=== PATIENT | male | born 1975 | race African-American/Black ===

== ENCOUNTER 2016-08-27 12:30 | Emergency (ER) | payer MEDICARE, MEDICAID ==
[2016-08-27] MEDS ORDERED: DIPH/PERTUSS(ACELL)/TETANUS VAC/PF 0.5 ML SYR (>=10YO) IM ONE (13:17)
--- NOTE | 2016-08-27 13:17 | ER Document Report ---
ED Medical Screen (RME) - General Stated Complaint: FACE INJURY Time seen by provider: 13:12 Mode of Arrival: Ambulatory Information source: Patient, Parent - mom Notes: 40-year-old male hit the top of his head on the chair in front of him due to the rocking that he does because of his MR behavior. Small puncture medial left eye canthus. Tetanus is not current. TRAVEL OUTSIDE OF THE [place] IN LAST 30 DAYS: No - Related Data Allergies/Adverse Reactions: No Known Allergies Allergy (Verified 06/21/16 09:36) Past Medical History - Past Medical History Cardiac Medical History: Denies: Hx Coronary Artery Disease, Hx Heart Attack, Hx Hypertension Pulmonary Medical History: Denies: Hx Asthma, Hx Bronchitis, Hx COPD, Hx Pneumonia Neurological Medical History: Reports: Hx Seizures - last sz was at 9 years old- no current meds. Denies: Hx Cerebrovascular Accident Musculoskeltal Medical History: Denies Hx Arthritis - Immunizations Hx Diphtheria, Pertussis, Tetanus Vaccination: Yes
--- NOTE | 2016-08-27 15:11 | ER Document Report ---
ED Wound - General Chief Complaint: Laceration Stated Complaint: FACE INJURY Mode of Arrival: Ambulatory Notes: The patient is a 40-year-old male, past medical history MR, presents with a small left facial laceration after he hit his head on the side of the yazidi pew. Tetanus is not up-to-date. Denies LOC, blurry vision or difficulty seeing. TRAVEL OUTSIDE OF THE [place] IN LAST 30 DAYS: No - Related Data Allergies/Adverse Reactions: No Known Allergies Allergy (Verified 08/27/16 13:12) Past Medical History - General Information source: Patient, Parent - mom - Social History Smoking Status: Unknown if Ever Smoked Chew tobacco use (# tins/day): No Frequency of alcohol use: None Drug Abuse: None Family History: Reviewed & Not Pertinent Patient has suicidal ideation: No Patient has homicidal ideation: No - Past Medical History Cardiac Medical History: Denies: Hx Coronary Artery Disease, Hx Heart Attack, Hx Hypertension Pulmonary Medical History: Denies: Hx Asthma, Hx Bronchitis, Hx COPD, Hx Pneumonia Neurological Medical History: Reports: Hx Seizures - last sz was at 9 years old- no current meds. Denies: Hx Cerebrovascular Accident Renal/ Medical History: Denies: Hx Peritoneal Dialysis Musculoskeltal Medical History: Denies Hx Arthritis - Immunizations Hx Diphtheria, Pertussis, Tetanus Vaccination: Yes Review of Systems - Review of Systems Notes: REVIEW OF SYSTEMS: CONSTITUTIONAL: -fevers, -chills EENT: -eye pain, -difficulty swallowing, -nasal congestion CARDIOVASCULAR:-chest pain, -syncope. RESPIRATORY: -cough, -SOB GASTROINTESTINAL: -abdominal pain, - nausea, -vomiting, -diarrhea GENITOURINARY: -dysuria, -hematuria MUSCULOSKELETAL: -back pain, -neck pain SKIN: -rash or skin lesions, +small facial lac HEMATOLOGIC: -easy bruising or bleeding. LYMPHATIC: -swollen, enlarged glands. NEUROLOGICAL: -altered mental status or loss of consciousness, -headache, - neurologic symptoms PSYCHIATRIC: -anxiety, -depression. ALL OTHER SYSTEMS REVIEWED AND NEGATIVE. Physical Exam - Vital signs Vitals: Temp Pulse Resp BP Pulse Ox 97.7 F 100 19 114/87 H 100 08/27/16 12:59 08/27/16 12:59 08/27/16 12:59 08/27/16 12:59 08/27/16 12:59 - Notes Notes: PHYSICAL EXAMINATION: GENERAL: Well-appearing, well-nourished and in no acute distress. EYES: Pupils equal round and reactive to light, extraocular movements intact, sclera anicteric, conjunctiva are normal. ENT: nares patent, oropharynx clear without exudates. Moist mucous membranes. NECK: Normal range of motion, supple without lymphadenopathy LUNGS: Breath sounds clear to auscultation bilaterally and equal. No wheezes rales or rhonchi. HEART: Regular rate and rhythm without murmurs ABDOMEN: Soft, nontender, normoactive bowel sounds. No guarding, no rebound. No masses appreciated. EXTREMITIES: Normal range of motion, no pitting or edema. No cyanosis. NEUROLOGICAL: Cranial nerves grossly intact. Normal speech, normal gait. Normal sensory, motor, and reflex exams. PSYCH: Normal mood, normal affect. SKIN: 0.5 cm superficial laceration over left latter day. Warm, Dry, normal turgor, no rashes or lesions noted. Course - Re-evaluation Re-evalutation: No eyeball involvement and EOMI. Attempted to Dermabond small laceration, but due to MR, patient was restless and would not cooperate. Due to close proximity to left eye, Dermabond repair was not completed. Tetanus updated. Gave return precautions to mom and patient and they understand. - Vital Signs Vital signs: Temp Pulse Resp BP Pulse Ox 97.8 F 94 19 174/86 H 99 08/27/16 15:15 08/27/16 15:15 08/27/16 15:15 08/27/16 15:15 08/27/16 15:15 Discharge - Discharge Clinical Impression: Facial laceration Qualifiers: Encounter type: initial encounter Qualified Code(s): S01.81XA - Laceration without foreign body of other part of head, initial encounter Condition: Good Disposition: HOME, SELF-CARE Additional Instructions: NON-SUTURED LACERATION: Your laceration did not require suturing. Some lacerations cannot be sutured because of increased infection risk, while others simply don't need stitches because they are shallow or very short. Your injury should be protected while it heals. Usually complete healing takes 10 to 14 days. Keep the dressing clean and dry, and change it every day. If you notice increasing pain, redness, swelling, drainage, or tender lumps in the armpit or groin above the injury, infection may be present. You should call the doctor at once. SOAP CLEANSING: Gently wash the wound daily using a mild soap (like Ivory, Phisoderm, Neutrogena). Use warm water, rubbing gently until all debris, ooze, and crusting have been washed from the wound. Allow to dry briefly (about 10 minutes) after cleaning. Repeat this cleansing at least three times a day for the first two days and then once or twice a day. ANTIBIOTIC OINTMENT PROTECTION: Your wounds are such that dressing them is not practical or optional. After cleansing, you should apply a thin coating of antibiotic ointment ( Bacitracin, not Neosporin) to the wounds at least three times daily. This lessens infection risk, and may decrease the amount of scarring. Use a q-tip or dull butter knife, not your finger, to apply this ointment. Any debris or ooze which builds up in the ointment should be gently rubbed off with a sterile gauze pad. Harder crusting may need to be gently scrubbed off with a clean wash cloth with soap and warm water, perhaps applying a warm, wet wash cloth to the wound for ten minutes first. Development of redness, severe itching, or blistering may mean allergy to the ointment. See the doctor. TETANUS IMMUNIZATION GIVEN: You have been given an immunization against tetanus. Please record this in your records. In general, a booster is needed only once every 10 years. The tetanus shot protects against tetanus or "lockjaw," which is a complication of certain wound infections (the tetanus shot cannot protect against the actual infection). The immunization site may become warm and red due to local reaction. If this occurs, apply warm compresses and take aspirin or ibuprofen to reduce inflammation and discomfort. Return for evaluation if the reaction becomes severe. FOLLOW-UP CARE: If you have been referred to another physician for follow-up care, call that physicians office for an appointment as you were instructed. If you experience a significant change in your laceration, or if you are concerned there may be an infection (swelling, redness, drainage, increasing tenderness, red streaks, tender lumps in the armpit or groin above the laceration, or fever) , return to the Emergency Department immediately re-evaluation.
[2016-08-27 15:16] VITALS: BP 174/86
== END 2016-08-27 15:10 | disposition home or self-care (01) ==
LOC: ER 12:30
DX: S01.81XA Laceration without foreign body of other part of head, initial encounter (principal); W22.8XXA Striking against or struck by other objects, initial encounter
CPT/HCPCS: 99282

== ENCOUNTER 2016-11-07 11:17 | Emergency (ER) | payer MEDICARE, MEDICAID ==
[2016-11-07] MEDS ORDERED: LIDOCAINE 2% VISCOUS SOLN 20 ML UDCUP PO ONE (12:35)
[2016-11-07] MEDS ORDERED: MAG HYDROX/AL HYDROX/SIMETH SUSP 30 ML UDCUP PO ONE (12:35)
[2016-11-07] MEDS ORDERED: METOCLOPRAMIDE HCL ORAL SOLN 10 MG/10 ML UDCUP PO ONE (12:35)
--- NOTE | 2016-11-07 12:36 | ER Document Report ---
Doctor's Note Notes: 11/07/16 12:35 41-year-old male presents with complaints of epigastric abdominal pain of 2 weeks duration, patient is MRDD, was seen by primary care and was unable to determine abdominal pain. Admits nausea vomiting I have greeted and performed a rapid initial assessment of this patient. A comprehensive ED assessment and evaluation of the patient, analysis of test results and completion of the medical decision making process will be conducted by additional ED providers. PHYSICAL EXAMINATION: GENERAL: Well-appearing, well-nourished and in no acute distress. HEAD: Atraumatic, normocephalic. EYES: Pupils equal round extraocular movements intact, conjunctiva are normal. ENT: Nares patent NECK: Normal range of motion LUNGS: No respiratory distress Musculoskeletal: Normal range of motion tendon epigastric region NEUROLOGICAL: Baseline PSYCH: Baseline SKIN: Warm, Dry, normal turgor, no rashes or lesions noted.
[2016-11-07 13:27] LABS: ABSOLUTE LYMPHOCYTES (AUTO) 1.2 10^3/uL (0.5-4.7); ABSOLUTE MONOCYTES (AUTO) 0.5 10^3/uL (0.1-1.4); ABSOLUTE NEUT (AUTO) 3.4 10^3/uL (1.7-8.2); BASOPHILS % (AUTO) 0.6 % (0-2); HEMATOCRIT 48.8 % (37.9-51.0); HEMOGLOBIN 15.7 g/dL (13.5-17.0); HGB HCT DIFFERENCE -1.7; LYMPHOCYTES % (AUTO) 24.1 % (13-45); MEAN CORPUSCULAR HEMOGLOBIN 26.4 pg (27.0-33.4); MEAN CORPUSCULAR HGB CONC 32.2 g/dL (32.0-36.0); MEAN CORPUSCULAR VOLUME 82 fl (80-97); MONOCYTES % (AUTO) 9.6 % (3-13); RED BLOOD COUNT 5.94 10^6/uL (4.35-5.55); RED CELL DISTRIBUTION WIDTH 13.6 % (11.5-14.0); SEGMENTED NEUTROPHILS % (AUTO) 65.7 % (42-78); WHITE BLOOD COUNT 5.1 10^3/uL (4.0-10.5)
--- NOTE | 2016-11-07 13:31 | ER Document Report ---
ED GI/ - General Chief Complaint: Abdominal Pain Stated Complaint: ABDOMINAL PAIN Information source: Patient, Parent Notes: Patient is a very pleasant 41-year-old male with some baseline mild mental retardation who presents today with his mom after some complaints of "belly pain " all week according to the patient's mother. She states that he holds his belly intermittently and complaints of some pain. However, she states that he is eating, drinking, urinating, and defecating normally. She denies any fevers , vomiting, or diarrhea. Patient has been mentating and acting normally. No history however of abdominal pain. TRAVEL OUTSIDE OF THE [place] IN LAST 30 DAYS: No - HPI Patient complains to provider of: Abdominal pain Onset: Other - See above Timing/Duration: Gradual Quality of pain: Other - Unable to obtain secondary to patient's condition Severity at maximum: Mild - And appearance Pain Level: Denies Location: Other - Periumbilical Sexual history: Inactive Associated symptoms: Other - See above Exacerbated by: Denies Relieved by: Denies Similar symptoms previously: No Recently seen / treated by doctor: Yes - Related Data Allergies/Adverse Reactions: No Known Allergies Allergy (Verified 11/07/16 12:17) Past Medical History - General Information source: Patient, Parent - Social History Smoking Status: Never Smoker Cigarette use (# per day): No Chew tobacco use (# tins/day): No Smoking Education Provided: No Frequency of alcohol use: None Drug Abuse: None Family History: Reviewed & Not Pertinent Patient has suicidal ideation: No Patient has homicidal ideation: No - Past Medical History Cardiac Medical History: Denies: Hx Coronary Artery Disease, Hx Heart Attack, Hx Hypertension Pulmonary Medical History: Denies: Hx Asthma, Hx Bronchitis, Hx COPD, Hx Pneumonia Neurological Medical History: Reports: Hx Seizures - last sz was at 9 years old- no current meds. Denies: Hx Cerebrovascular Accident Renal/ Medical History: Denies: Hx Peritoneal Dialysis Musculoskeltal Medical History: Denies Hx Arthritis - Immunizations Hx Diphtheria, Pertussis, Tetanus Vaccination: Yes Review of Systems - Review of Systems Constitutional: denies: Fever EENT: denies: Eye discharge, Nose discharge Cardiovascular: denies: Chest pain, Palpitations Respiratory: denies: Short of breath Gastrointestinal: denies: Vomiting Genitourinary: denies: Dysuria Musculoskeletal: denies: Leg swelling Skin: Other - no hives. denies: Rash Neurological/Psychological: Other - no slurred speech -: Yes All other systems reviewed and negative Physical Exam - Vital signs Vitals: Temp Pulse Resp BP Pulse Ox 97.3 F 46 L 24 H 124/83 94 11/07/16 11:26 11/07/16 11:26 11/07/16 11:26 11/07/16 11:26 11/07/16 11:26 Notes: Reviewed vital signs and nursing note as charted by RN. CONSTITUTIONAL: Alert and polite and does follow commands and answers questions in 2-3 word sentences. HEAD: Normocephalic; atraumatic EYES: Sclerae non-icteric ENT: Normal nose; no rhinorrhea; moist mucous membranes; pharynx without lesions noted NECK: Supple without meningismus; non-tender; no cervical lymphadenopathy, no masses CARD: Regular rate and rhythm; no murmurs, no clicks, no rubs, no gallops; symmetric distal pulses RESP: Normal chest excursion without splinting or tachypnea; breath sounds clear and equal bilaterally; no wheezes, no rhonchi, no rales ABD/GI: Normal bowel sounds; non-distended; soft, nontender currently to deep palpation in all 4 quadrants of the abdomen. GI/: Patient has no penile lesions. He has no testicular pain or swelling noted. BACK: The back appears normal and is non-tender to palpation, there is no CVA tenderness EXT: Normal ROM in all joints; non-tender to palpation; no cyanosis, no effusions, no edema SKIN: Normal color for age and race; warm; dry; good turgor; capillary refill < 2 seconds; no acute lesions noted NEURO: Moves all extremities equally; Motor and sensory function intact PSYCH: The patient's mood and manner are appropriate for his baseline condition. Grooming and personal hygiene are appropriate. Course - Re-evaluation Re-evalutation: 11/07/16 13:30 Given the above history and physical examination, I will obtain basic labs, urinalysis, and reassess. Vital signs are stable. Patient currently has no tenderness I'm able to elicit on palpation of the abdominal and GI/ region. 11/07/16 14:[address] scan was ordered in triage. Given the patient's mental condition, I believe this may be a smart idea for thoroughness of examination. 11/07/16 14:47 Patient is currently not cooperative and laying still for the CT scan. We have tried 2 mg of Ativan. We have had mom escort him personally to CT scan and we will still unable to perform the test. 11/07/16 14:55 I had a long discussion with mom who is the patient's power of crap game box person. I've explained that the patient appears to be very comfortable and has a normal white blood cell count. She states that she "needs to make sure nothing is wrong with his belly". I've explained the risks and benefits of conscious sedation with ketamine. She understands these risks and consents. I believe ketamine will be the most appropriate drug to sedate this patient for CT scan. Patient weighs around 130 pounds. 11/07/16 15:29 EKG shows a heart of 70, normal sinus rhythm, normal axis, no obvious ST elevation or depression. 11/07/16 18:32 We attempted to use ketamine and Ativan for conscious sedation for the CT scan as the patient needed sedation for greater than 8 minutes. We were unable to completely sedate the patient despite providing 2 mg/kg intravenously. We were able with the sedation to obtain an x-ray of the abdomen. I had a long discussion with mom that I believe the only way to adequately perform a CT scan of the abdomen and pelvis and this patient is to fully sedate possibly intubate the patient. X-ray of the abdomen as recorded. Mom understands the risks and benefits of this and at this time she would like to defer and take the patient home and take the patient to the primary doctor. She understands the strict return precautions and promises to adhere to these. - Vital Signs Vital signs: Temp Pulse Resp BP Pulse Ox 97.3 F 78 97 H 117/85 19 L 11/07/16 11:26 11/07/16 18:10 11/07/16 18:10 11/07/16 18:10 11/07/16 18:10 - Laboratory Result Diagrams: 11/07/16 12:58 11/07/16 12:58 Laboratory results interpreted by me: 11/07/16 11/07/16 11/07/16 12:58 12:58 13:10 RBC 5.94 H MCH 26.4 L Plt Count 143 L Chloride 108 H Carbon Dioxide 21 L Urine Ketones 20 H Procedures - Conscious Sedation Conscious sedation Time started: 16:45 Time completed: 17:00 Consent obtained: Yes Indication: imaging and a mentally retarded patient Pt with a mild systemic disease.: P2. - ASA Classification. Airway Evaluation: Normal anatomy Mallampati Classification: Class 1 Used during procedure: Suction available, IV access obtained, Pulse ox on pt., director of retail operations on pt. Medications administered: Ketamine Reversal agents: None I personally performed/intraservice time: Sedation, 30 min or less Complications: No Discharge - Discharge Clinical Impression: Abdominal pain Qualifiers: Abdominal location: unspecified location Qualified Code(s): R10.9 - Unspecified abdominal pain Condition: Good Disposition: HOME, SELF-CARE Additional Instructions: Please come back immediately with any worsening pain, fevers, vomiting, change in location or quality of pain, or any other acute problems. Please follow-up with the primary doctor as well as possibly the small order cutter as we have discussed. Referrals: TITUS EARL MD [ACTIVE STAFF] - Follow up as needed
[2016-11-07 13:36] LABS: APPEARANCE,URINE CLEAR; BILIRUBIN,URINE NEGATIVE (NEGATIVE); GLUCOSE, URINE NEGATIVE (NEGATIVE); KETONES,URINE 20 mg/dL (NEGATIVE); LEUKOCYTE ESTERASE,URINE NEGATIVE (NEGATIVE); NITRITE,URINE NEGATIVE (NEGATIVE); PROTEIN,URINE NEGATIVE (NEGATIVE); URINE SPECIFIC GRAVITY 1.023; UROBILINOGEN,URINE NEGATIVE mg/dL (<2.0)
[2016-11-07 13:38] LABS: ALANINE AMINOTRANSFERASE 37 U/L (21-72); ALKALINE PHOSPHATASE 91 U/L (38-126); ANION GAP 16 (5-19); ASPARTATE AMINO TRANSFERASE 25 U/L (17-59); BILIRUBIN,DIRECT 0.3 mg/dL (0.0-0.4); BILIRUBIN,TOTAL 1.3 mg/dL (0.2-1.3); BLOOD UREA NITROGEN 20 mg/dL (7-20); CARBON DIOXIDE 21 mmol/L (22-30); CHLORIDE 108 mmol/L (98-107); CREATININE RESULT 0.85 mg/dL (0.52-1.25); GLUCOSE 97 mg/dL (75-110); LIPASE 57.9 U/L (23-300); POTASSIUM 4.3 mmol/L (3.6-5.0); TOTAL PROTEIN 8.1 g/dL (6.3-8.2)
[2016-11-07] MEDS ORDERED: LORAZEPAM INJ 2 MG/1 ML VIAL IV ONE ×2 (14:00→17:57)
[2016-11-07] MEDS ORDERED: KETAMINE HCL INJ 500 MG/10 ML VIAL IV ONE ×3 (14:57→17:57)
[2016-11-07] MEDS ORDERED: LORAZEPAM INJ 2 MG/1 ML VIAL ONE (16:54)
[2016-11-07 18:44] VITALS: BP 113/74
--- NOTE | 2016-11-07 22:17 | EKG REPORT ---
SEVERITY:- BORDERLINE ECG - SINUS RHYTHM BORDERLINE T ABNORMALITIES, ANT-LAT LEADS : Confirmed by: Natalia Carlson 07-Nov-2016 22:17:08
== END 2016-11-07 18:50 | disposition home or self-care (01) ==
LOC: ER 11:17
DX: R10.33 Periumbilical pain (principal); F70 Mild intellectual disabilities
CPT/HCPCS: 93005; 96376; 99284; 96374; 36415; 83690; 85025; 80053; 81001; 84484; 74000; 93010; J3490 ×2; A9270; J2060

== ENCOUNTER 2017-06-23 07:16 | Emergency (ER) | payer MEDICARE, MEDICAID ==
[2017-06-23 07:29] VITALS: BP 127/93
[2017-06-23] MEDS ORDERED: CEPHALEXIN 500 MG CAPSULE PO ONE (07:49)
[2017-06-23] MEDS ORDERED: IBUPROFEN 600 MG TABLET PO ONE (07:50)
[2017-06-23] MEDS ORDERED: DIPH/PERTUSS(ACELL)/TETANUS VAC/PF 0.5 ML SYR (>=10YO) IM ONE (07:51)
--- NOTE | 2017-06-23 07:57 | ER Document Report ---
ED Hand/Wrist Injury - General Chief Complaint: Finger Injury Stated Complaint: RIGHT HAND INJURY Time Seen by Provider: 06/23/17 07:48 Notes: 41 is mentally retarded individual presents today with right middle finger injury. Mother does not know when he sustained it but she noted this morning the finger was bleeding therefore brought into the ED. No history could be obtained from him. TRAVEL OUTSIDE OF THE [place] IN LAST 30 DAYS: No - Related Data Allergies/Adverse Reactions: No Known Allergies Allergy (Verified 05/20/17 09:24) Past Medical History - Social History Smoking Status: Never Smoker Chew tobacco use (# tins/day): No Frequency of alcohol use: None Drug Abuse: None Family History: Reviewed & Not Pertinent Patient has suicidal ideation: No Patient has homicidal ideation: No - Past Medical History Cardiac Medical History: Denies: Hx Coronary Artery Disease, Hx Heart Attack, Hx Hypertension Pulmonary Medical History: Denies: Hx Asthma, Hx Bronchitis, Hx COPD, Hx Pneumonia Neurological Medical History: Reports: Hx Seizures - last sz was at 9 years old- no current meds. Denies: Hx Cerebrovascular Accident Renal/ Medical History: Denies: Hx Peritoneal Dialysis Musculoskeltal Medical History: Denies Hx Arthritis Past Surgical History: Reports: Hx Oral Surgery - Immunizations Hx Diphtheria, Pertussis, Tetanus Vaccination: Yes Review of Systems - Review of Systems Notes: Review of system unremarkable Examination of the finger-right middle finger at the middle phalanx and distal phalanx shows swelling erythema, close to the nailbed days bluish red discoloration and swelling with subcutaneous hematoma was noted which was leaking serosanguineous fluid. There is no purulent fluid is no yellow discoloration. He was able to flex and extend the middle interphalangeal joint as well as proximal interphalangeal joint. Physical Exam - Vital signs Vitals: Temp Pulse Resp BP Pulse Ox 97.1 F 99 20 127/93 H 98 06/23/17 07:27 06/23/17 07:27 06/23/17 07:27 06/23/17 07:27 06/23/17 07:27 Course - Re-evaluation Re-evalutation: 06/23/17 08:28 Patient's finger was splinted - Vital Signs Vital signs: Temp Pulse Resp BP Pulse Ox 97.1 F 99 20 127/93 H 98 06/23/17 07:27 06/23/17 07:27 06/23/17 07:27 06/23/17 07:27 06/23/17 07:27 - Diagnostic Test Radiology results interpreted by me: 06/23/17 08:28 Radiology report reviewed, indicate that might be a tuft fracture Discharge - Discharge Clinical Impression: Subungual hematoma of right middle finger Injury of right middle finger Qualifiers: Encounter type: initial encounter Qualified Code(s): S69.91XA - Unspecified injury of right wrist, hand and finger(s), initial encounter Disposition: HOME, SELF-CARE Instructions: Subungual Hematoma ([facility]) Prescriptions: Cephalexin Monohydrate [Keflex 500 mg Capsule] 500 mg PO TID #30 capsule Ibuprofen 600 mg PO TID #30 tablet
--- NOTE | 2017-06-23 08:17 | RADIOLOGY REPORT (SQ) ---
EXAM DESCRIPTION: FINGER RIGHT COMPLETED DATE/TIME: 06/23/2017 8:09 am REASON FOR STUDY: Finger injury COMPARISON: None. NUMBER OF VIEWS: Three views. TECHNIQUE: AP, lateral, and oblique images acquired of the right third finger. LIMITATIONS: None. FINDINGS: MINERALIZATION: Normal. BONES: There are a few faint linear radiolucencies in the tuft. Otherwise no acute fracture or dislo cation. No worrisome bone lesions. SOFT TISSUES: No soft tissue swelling. No foreign body. OTHER: No other significant finding. IMPRESSION: A FEW FAINT LINEAR RADIOLUCENCIES IN THE TUFT OF THE 3RD FINGER. DIFFICULT TO DETERMINE IF THIS REPRESENTS TRABECULAR PATTERN OR NONDISPLACED FRACTURE. NO OTHER SIGNIFICANT FINDINGS. COMMENT: SITE OF TRAUMA/COMPLAINT MARKED/STAMP COMPLETED: YES. TECHNICAL DOCUMENTATION: JOB ID: [id number] [employer]- All Rights Reserved
== END 2017-06-23 08:41 | disposition home or self-care (01) ==
LOC: ER 07:16
DX: S60.131A Contusion of right middle finger with damage to nail, initial encounter (principal); X58.XXXA Exposure to other specified factors, initial encounter
CPT/HCPCS: 99283; 90471; 73140; 90715; A9270 ×2

== ENCOUNTER 2017-08-28 11:11 | Day surgery (SDC) | payer MEDICARE, MEDICAID ==
[~2017-08-28 11:11] MED LIST: LACTATED RINGERS 1000 ML IV PRN; LIDOCAINE 0.5% INJ-PF (5 MG/ML) 50 ML SDV SUBCUT PRN; ONDANSETRON HCL INJ/PF 4 MG/2 ML SDV ONE
[2017-08-28] MEDS ORDERED: KETAMINE HCL INJ 500 MG/10 ML VIAL ONE (13:11)
[2017-08-28] MEDS ORDERED: PROPOFOL INJ 200 MG/20 ML VIAL IV ONE (13:12)
[2017-08-28] MEDS ORDERED: FENTANYL CITRATE INJ/PF 100 MCG/2 ML AMPUL ONE (13:12)
[2017-08-28] MEDS ORDERED: MIDAZOLAM 2 MG/2 ML INJ ONE (13:12)
[2017-08-28] MEDS ORDERED: LIDOCAINE 2%/EPINEPHRINE INJ 1.7 ML CARTRIDGE ONE ×2 (14:35→14:48)
--- NOTE | 2017-08-28 15:21 | Operative Report ---
Operative Report DATE OF SURGERY: 08/28/17 PREOPERATIVE DIAGNOSIS: Dental caries POSTOPERATIVE DIAGNOSIS: Dental caries OPERATION: Surgical removal of teeth numbers 15 and 28 SURGEON: DASH POWELL ANESTHESIA: Moderate Sedation TISSUE REMOVED OR ALTERED: Teeth which were discarded COMPLICATIONS: None ESTIMATED BLOOD LOSS: 10 mL INTRAOPERATIVE FINDINGS: There were multiple decayed teeth. Tooth #15 had a large mesial carious lesion that extended below the gingival level which was too deep to be restored. Tooth #28 also had a large mesial lesion that was too deep for a church. PROCEDURE: The patient was brought into operating room #1 and placed on the operating room table in supine position. Intravenous sedation was induced via a peripheral IV. The patient was then prepped and draped in the usual fashion for an intraoral procedure. A total of 2 carpules of 2% Lidocaine with 1:100K Epi were delivered to the planned surgical sites via both infiltration and nerve block. The oral cavity and oropharynx were suctioned and a moistened throat screen was placed. A bite block was used throughout the procedure. Full thickness mucoperisteal flaps were elevated. Ostectomy was completed as needed. Teeth were delivered with elevators and forceps. All sites debrided and irrigated. No sinus exposure noted. Mandible intact post op. SAWYER not visualized. Wounds reapproximated and sutured with 4-0 chromic gut. The oral cavity was suctioned and found to be free of debris. The throat sreen was removed. The oropharynx was suctioned. Gauze packs were placed bilaterally to aid in continued hemastasis. The patient was taken to recovery in spontaneous breathing fashion.
[2017-08-28 17:13] VITALS: BP 113/81
== END 2017-08-28 16:50 | disposition home or self-care (01) ==
LOC: OROUT 11:11
PROVIDERS: ATTEND Dentist Oral and Maxillofacial Surgery
PROC: 0CDWXZ0 Extraction of Upper Tooth, Single, External Approach (ICD-10-PCS; 2017-08-28)
PROC: 0CDXXZ0 Extraction of Lower Tooth, Single, External Approach (ICD-10-PCS; principal; 2017-08-28 15:00)
DX: K02.63 Dental caries on smooth surface penetrating into pulp (principal)
CPT/HCPCS: 41899; J2250; J3490 ×2; J3010; J2405; J2704; 170

== ENCOUNTER → 2017-12-18 | Outpatient (CLI) | payer MEDICARE, MEDICAID ==
--- NOTE | 2017-12-18 16:22 | RADIOLOGY REPORT (SQ) ---
EXAM DESCRIPTION: HAND BILATERAL 3 VIEWS COMPLETED DATE/TIME: 12/18/2017 4:14 pm REASON FOR STUDY: M12.9 ARTHROPATHY, UNSPECIFIED M12.9 ARTHROPATHY, UNSPECIFIED COMPARISON: None. EXAM PARAMETERS: NUMBER OF VIEWS: Three views right hand. Three views left hand. TECHNIQUE: AP, lateral and oblique radiographic images acquired of bilateral hands. LIMITATIONS: None. FINDINGS: RIGHT HAND: MINERALIZATION: Normal. BONES: No acute fracture or dislocation. No worrisome bone lesions. No significant osteophytes. JOINTS: No erosions. No srikanth-articular osteopenia. No chondrocalcinosis. SOFT TISSUES: No swelling. No calcifications. OTHER: No other significant finding. LEFT HAND: MINERALIZATION: Normal. BONES: No acute fracture or dislocation. No worrisome bone lesions. No significant osteophytes. JOINTS: No erosions. No srikanth-articular osteopenia. No chondrocalcinosis. SOFT TISSUES: No swelling. No calcifications. OTHER: No other significant finding. IMPRESSION: NEGATIVE STUDY BILATERAL HANDS. NO ACUTE POST-TRAUMATIC CHANGES. NO EXPLANATION FOR PAIN . TECHNICAL DOCUMENTATION: JOB ID: [id number]- All Rights Reserved Reading location - IP/workstation name: [email or web address]
== END ==
LOC: RAD 15:53
PROVIDERS: ATTEND Nurse Practitioner Family
DX: M79.642 Pain in left hand (principal); M79.641 Pain in right hand; M13.842 Other specified arthritis, left hand; M13.841 Other specified arthritis, right hand

== ENCOUNTER 2017-12-19 08:28 | Emergency (ER) | payer MEDICARE, MEDICAID ==
[2017-12-19 08:37] VITALS: BP 147/75
--- NOTE | 2017-12-19 09:45 | RADIOLOGY REPORT (SQ) ---
EXAM DESCRIPTION: CHEST 2 VIEWS COMPLETED DATE/TIME: 12/19/2017 9:34 am REASON FOR STUDY: cough congestion COMPARISON: 05/20/2017. EXAM PARAMETERS: NUMBER OF VIEWS: two views TECHNIQUE: Digital Frontal and Lateral radiographic views of the chest acquired. RADIATION DOSE: NA LIMITATIONS: none FINDINGS: LUNGS AND PLEURA: No opacities, masses or pneumothorax. No pleural effusion. MEDIASTINUM AND HILAR STRUCTURES: No masses or contour abnormalities. HEART AND VASCULAR STRUCTURES: Heart normal size. No evidence for failure. BONES: No acute findings. HARDWARE: None in the chest. OTHER: No other significant finding. IMPRESSION: NO ACUTE RADIOGRAPHIC FINDING IN THE CHEST. TECHNICAL DOCUMENTATION: JOB ID: [id number] [employer]- All Rights Reserved Reading location - IP/workstation name: [email or web address]
--- NOTE | 2017-12-19 09:56 | ER Document Report ---
ED General - General Chief Complaint: Congestion Stated Complaint: SORE THROAT Time Seen by Provider: 12/19/17 08:56 Mode of Arrival: Ambulatory Information source: Patient, Parent Notes: 42 yr old male presents with complaints of hives on face , eye lid and head since yesterday when he was placed on medication for allergies by pcp. pt dneies any complaints but has developmental delays. mother notes cough and congestion associated with the sympotms for which he was seen yesterday and diagnosed with hives. TRAVEL OUTSIDE OF THE [place] IN LAST 30 DAYS: No - HPI Onset: Other Onset/Duration: Worse Quality of pain: No pain Severity: Mild Pain Level: Denies Associated symptoms: Nonproductive cough, Other Exacerbated by: Denies Relieved by: Denies Similar symptoms previously: No Recently seen / treated by doctor: Yes - Related Data Allergies/Adverse Reactions: No Known Allergies Allergy (Verified 12/19/17 09:00) Past Medical History - Social History Smoking Status: Never Smoker Cigarette use (# per day): No Chew tobacco use (# tins/day): No Smoking Education Provided: No Family History: Reviewed & Not Pertinent Patient has suicidal ideation: No Patient has homicidal ideation: No - Past Medical History Cardiac Medical History: Denies: Hx Coronary Artery Disease, Hx Heart Attack, Hx Hypertension Pulmonary Medical History: Denies: Hx Asthma, Hx Bronchitis, Hx COPD, Hx Pneumonia Neurological Medical History: Reports: Hx Seizures - last sz was at 9 years old- no current meds. Denies: Hx Cerebrovascular Accident Renal/ Medical History: Denies: Hx Peritoneal Dialysis Musculoskeltal Medical History: Denies Hx Arthritis Past Surgical History: Reports: Hx Oral Surgery - Immunizations Hx Diphtheria, Pertussis, Tetanus Vaccination: Yes Review of Systems - Review of Systems Notes: REVIEW OF SYSTEMS: CONSTITUTIONAL : Denies fever, chills, or sweats. Denies recent illness. EENT: Denies eye, ear, throat, or mouth pain or symptoms. Denies nasal or sinus congestion or discharge. Denies throat, tongue, or mouth swelling or difficulty swallowing. CARDIOVASCULAR: Denies chest pain. Denies palpitations or racing or irregular heart beat. Denies ankle edema. RESPIRATORY: Cough congestion GASTROINTESTINAL: Denies abdominal pain or distention. Denies nausea, vomiting , or diarrhea. Denies blood in vomitus, stools, or per rectum. Denies black, tarry stools. Denies constipation. GENITOURINARY: Denies difficulty urinating, painful urination, burning, frequency, blood in urine, or discharge. MUSCULOSKELETAL: Denies back or neck pain or stiffness. Denies joint pain or swelling. SKIN: Hives HEMATOLOGIC : Denies easy bruising or bleeding. LYMPHATIC: Denies swollen, enlarged glands. NEUROLOGICAL: Denies confusion or altered mental status. Denies passing out or loss of consciousness. Denies dizziness or lightheadedness. Denies headache. Denies weakness or paralysis or loss of use of either side. Denies problems with gait or speech. Denies sensory loss, numbness, or tingling. Denies seizures. PSYCHIATRIC: Denies anxiety or stress. Denies depression, suicidal ideation, or homicidal ideation. ALL OTHER SYSTEMS REVIEWED AND NEGATIVE. Dictation was performed using [employer] voice recognition software PHYSICAL EXAMINATION: GENERAL: Well-appearing, well-nourished and in no acute distress. HEAD: Atraumatic, normocephalic. EYES: Pupils equal round and reactive to light, extraocular movements intact, sclera anicteric, conjunctiva are normal. Left upper eyelid is swollen ENT: Nares patent, oropharynx clear without exudates. Moist mucous membranes. NECK: Normal range of motion, supple without lymphadenopathy LUNGS: Breath sounds clear to auscultation bilaterally and equal. No wheezes rales or rhonchi. HEART: Regular rate and rhythm without murmurs ABDOMEN: Soft, nontender, nondistended abdomen. No guarding, no rebound. No masses appreciated. Musculoskeletal: Normal range of motion, no pitting or edema. No cyanosis. NEUROLOGICAL: baseline mentation PSYCH: Normal mood, normal affect. SKIN: Generalized hives noted on face arms Physical Exam - Vital signs Vitals: Temp Pulse Resp BP Pulse Ox 98.0 F 83 20 147/75 H 100 12/19/17 08:35 12/19/17 08:35 12/19/17 08:35 12/19/17 08:35 12/19/17 08:35 Course - Re-evaluation Re-evalutation: 12/19/17 15:43 Patient's presentation most consistent with an allergic reaction, the patient has no signs of cellulitis, there is no concern for orbital cellulitis, he looks well, he is afebrile, the hives seem to be progressing from initial presentation, he will be started on prednisone Benadryl Pepcid and will be given strict return precautions. The patient is at his baseline mentation per his mother After performing a Medical Screening Examination, I estimate there is LOW risk for any life threatening rash. At this time the patient looks extremely well and there are no signs of systemic infection, however this may change at any time and the rash may change. I have reevaluated this patient multiple times and no significant life threatening changes are noted. The patients mother and I have discussed the diagnosis and risks, and we agree with discharging home with close follow-up with the understanding that symptoms and presentations can change. We also discussed returning to the Emergency Department immediately if new or worsening symptoms occur. We have discussed the symptoms which are most concerning (e.g., changing or worsening pain, fever, numbness, weakness, cool or painful digits) that necessitate immediate return. - Vital Signs Vital signs: Temp Pulse Resp BP Pulse Ox 98.0 F 83 20 147/75 H 100 12/19/17 08:35 12/19/17 08:35 12/19/17 08:35 12/19/17 08:35 12/19/17 08:35 Discharge - Discharge Clinical Impression: Cough Allergic reaction Qualifiers: Encounter type: initial encounter Qualified Code(s): T78.40XA - Allergy, unspecified, initial encounter Condition: Stable Disposition: HOME, SELF-CARE Instructions: Acute Allergic Reaction ([facility]) Prescriptions: Diphenhydramine HCl [Benadryl 50 mg Capsule] 1 cap PO Q6 PRN #20 capsule PRN Reason: Prednisone [Deltasone 20 mg Tablet] 3 tab PO DAILY 5 Days tablet Referrals: RICCARDO MENDOZA MD [Primary Care Provider] - Follow up as needed
== END 2017-12-19 10:05 | disposition home or self-care (01) ==
LOC: ER 08:28
DX: R05 Cough (principal); T78.40XA Allergy, unspecified, initial encounter; L50.0 Allergic urticaria; X58.XXXA Exposure to other specified factors, initial encounter
CPT/HCPCS: 71046; 99283

== ENCOUNTER 2017-12-23 10:11 | Emergency (ER) | payer MEDICARE, MEDICAID ==
[2017-12-23 10:17] VITALS: BP 116/80
--- NOTE | 2017-12-23 10:24 | ER Document Report ---
HPI - HPI Patient complains to provider of: right periorbital skin swelling Onset: This morning Onset/Duration: Gradual Pain Level: 3 Context: 42 yo MR pt with mom has swelling to right periorbital skin this am. NO fever . Seen for hives the other day in the ER. Benadryl given this am, out of the the prednisone. No KADY meds. Associated Symptoms: None Exacerbated by: Denies Relieved by: Denies - ROS ROS below otherwise negative: Yes Systems Reviewed and Negative: Yes All other systems reviewed and negative Past Medical History - General Information source: Parent - Social History Smoking Status: Never Smoker Frequency of alcohol use: None Drug Abuse: None Lives with: Parents Family History: Reviewed & Not Pertinent Neurological Medical History: Reports: Hx Seizures - last sz was at 9 years old- no current meds Renal/ Medical History: Denies: Hx Peritoneal Dialysis Past Surgical History: Reports: Hx Oral Surgery - Immunizations Hx Diphtheria, Pertussis, Tetanus Vaccination: Yes Vertical Provider Document - CONSTITUTIONAL Agree With Documented VS: Yes Exam Limitations: No Limitations General Appearance: No Apparent Distress - INFECTION CONTROL TRAVEL OUTSIDE OF THE [place] IN LAST 30 DAYS: No - RESPIRATORY Respiratory: Breath Sounds Normal, No Respiratory Distress - CARDIOVASCULAR Cardiovascular: Regular Rate, Regular Rhythm - MUSCULOSKELETAL/EXTREMETIES Musculoskeletal/Extremeties: MAEW - NEURO Level of Consciousness: Awake - DERM Integumentary: Rash - facial wheals, lips/mouth normal Course - Vital Signs Vital signs: Temp Pulse Resp BP Pulse Ox 98.3 F 87 20 116/80 98 12/23/17 10:16 12/23/17 10:16 12/23/17 10:16 12/23/17 10:16 12/23/17 10:16 Discharge - Discharge Clinical Impression: Facial urticaria Condition: Good Disposition: HOME, SELF-CARE Instructions: Acid-Suppressing Medication ([facility]), Acute Urticaria ([facility]), Use of Diphenhydramine, Steroid Medication Additional Instructions: Benadryl 50 mg every 4-6 hours See your provider tomorrow Prednisone for this week Pepcid 40 mg per day Return to the emergency room if worse Prescriptions: Famotidine [Pepcid 40 mg Tablet] 40 mg PO DAILY #30 tablet Prednisone [Deltasone 10 mg Tablet] 10 mg PO ASDIR PRN #15 tablet PRN Reason: Referrals: RICCARDO MENDOZA MD [Primary Care Provider] - Follow up tomorrow
[2017-12-23] MEDS ORDERED: DIPHENHYDRAMINE HCL 50 MG/ML VIAL IV ONE (10:37)
[2017-12-23] MEDS ORDERED: DIPHENHYDRAMINE HCL 50 MG CAPSULE PO ONE (10:37)
[2017-12-23] MEDS ORDERED: FAMOTIDINE 20 MG TABLET PO ONE (10:37)
[2017-12-23] MEDS ORDERED: PREDNISONE 20 MG TABLET PO ONE (10:37)
== END 2017-12-23 11:02 | disposition home or self-care (01) ==
LOC: ER 10:11
DX: L50.9 Urticaria, unspecified (principal)
CPT/HCPCS: 99283; A9270 ×3; J7512

== ENCOUNTER 2018-02-28 11:46 | Emergency (ER) | payer MEDICARE, MEDICAID ==
[2018-02-28 11:54] VITALS: BP 130/73
[2018-02-28] MEDS ORDERED: ONDANSETRON 4 MG TAB.RAPDIS PO ONE (12:33)
--- NOTE | 2018-02-28 12:34 | ER Document Report ---
ED Medical Screen (RME) - General Chief Complaint: Abdominal Pain Stated Complaint: ABDOMINAL PAIN Time Seen by Provider: 02/28/18 12:18 Notes: Chief complaint: Abdominal pain History of complain:( obtained from----patient)42 years old male with a history of mental disorder presents with abdominal pain. From epigastrium to the suprapubic region. Nausea and vomited a few times. No fever chills. History is extremely limited. Onset: As above Duration: Gradual Severity: Mild to moderate Quality: Moderate Context: Exacerbating factor and relieving factors: REVIEW OF SYSTEMS: CONSTITUTIONAL : Denies fever, chills, or sweats. Denies recent illness. EENT: Denies eye, ear, throat, or mouth pain or symptoms. Denies nasal or sinus congestion or discharge. Denies throat, tongue, or mouth swelling or difficulty swallowing. CARDIOVASCULAR: Denies chest pain. Denies palpitations or racing or irregular heart beat. Denies ankle edema. RESPIRATORY: Denies cough, cold, or chest congestion. Denies shortness of breath, difficulty breathing, or wheezing. GASTROINTESTINAL: Denies distention. Denies nausea, vomiting, or diarrhea. Denies blood in vomitus, stools, or per rectum. Denies black, tarry stools. Denies constipation. GENITOURINARY: Denies difficulty urinating, painful urination, burning, frequency, blood in urine, or discharge. FEMALE GENITOURINARY: Denies vaginal bleeding, heavy or abnormal periods, irregular periods. Denies vaginal discharge or odor. MUSCULOSKELETAL: Denies back or neck pain or stiffness. Denies joint pain or swelling. SKIN: Denies rash, lesions or sores. HEMATOLOGIC : Denies easy bruising or bleeding. LYMPHATIC: Denies swollen, enlarged glands. NEUROLOGICAL: Denies confusion or altered mental status. Denies passing out or loss of consciousness. Denies dizziness or lightheadedness. Denies headache. Denies weakness or paralysis or loss of use of either side. Denies problems with gait or speech. Denies sensory loss, numbness, or tingling. Denies seizures. PSYCHIATRIC: Denies anxiety or stress. Denies depression, suicidal ideation, or homicidal ideation. ALL OTHER SYSTEMS REVIEWED AND NEGATIVE. PHYSICAL EXAMINATION: GENERAL: Well-appearing, well-nourished and in no acute distress. HEAD: Atraumatic, normocephalic. EYES: Pupils equal round and reactive to light, extraocular movements intact, conjunctiva are normal. ENT: Nares patent, oropharynx clear without exudates. Moist mucous membranes. NECK: Normal range of motion, supple without lymphadenopathy LUNGS: Breath sounds clear to auscultation bilaterally and equal. No wheezes rales or rhonchi. HEART: Regular rate and rhythm without murmurs ABDOMEN: Soft, nontender, nondistended abdomen. No guarding, no rebound. No masses appreciated. Examination of genitals-deferred Musculoskeletal: Normal range of motion, no pitting or edema. No cyanosis. NEUROLOGICAL: Cranial nerves grossly intact. Normal speech, normal gait. Normal sensory, motor exams PSYCH: Normal mood, normal affect. SKIN: Warm, Dry, normal turgor, no rashes or lesions noted. Dictation was performed using [employer] voice recognition software TRAVEL OUTSIDE OF THE [place] IN LAST 30 DAYS: No - HPI Notes: 02/28/18 14:04 Dictated - Related Data Allergies/Adverse Reactions: No Known Allergies Allergy (Verified 02/28/18 12:18) Past Medical History - Social History Chew tobacco use (# tins/day): No Frequency of alcohol use: None Drug Abuse: None Family history: None, Reviewed & Not Pertinent - Past Medical History Cardiac Medical History: Denies: Hx Coronary Artery Disease, Hx Heart Attack, Hx Hypertension Pulmonary Medical History: Denies: Hx Asthma, Hx Bronchitis, Hx COPD, Hx Pneumonia Neurological Medical History: Reports: Hx Seizures - last sz was at 9 years old- no current meds. Denies: Hx Cerebrovascular Accident Renal/ Medical History: Denies: Hx Peritoneal Dialysis GI Medical History: Reports: Hx Gastroesophageal Reflux Disease Musculoskeltal Medical History: Denies Hx Arthritis Past Surgical History: Reports: Hx Oral Surgery - Immunizations Hx Diphtheria, Pertussis, Tetanus Vaccination: Yes History of Influenza Vaccine for 04/2017 - 09/2017 Season: No Review of Systems - Review of Systems Notes: Dictated Physical Exam - Vital signs Vitals: Temp Pulse Resp BP Pulse Ox 97.6 F 94 20 130/73 H 100 02/28/18 11:53 02/28/18 11:53 02/28/18 11:53 02/28/18 11:53 02/28/18 11:53 - Notes Notes: Dictated Course - Vital Signs Vital signs: Temp Pulse Resp BP Pulse Ox 97.6 F 94 20 130/73 H 100 02/28/18 11:53 02/28/18 11:53 02/28/18 11:53 02/28/18 11:53 02/28/18 11:53 - Laboratory Result Diagrams: 02/28/18 12:45 02/28/18 12:45 Laboratory results interpreted by me: 02/28/18 02/28/18 12:45 12:45 RBC 6.09 H MCH 26.5 L RDW 14.1 H Plt Count 143 L Total Bilirubin 1.6 H - Diagnostic Test Radiology reviewed: Image reviewed - Abdominal series shows large amount of fecal material in the large intestine Doctor's Discharge - Discharge Clinical Impression: Constipation by delayed colonic transit Condition: Fair Disposition: HOME, SELF-CARE Instructions: Abdominal Pain ([facility]), Constipation ([facility]) Prescriptions: Ondansetron [Zofran Odt 4 mg Tablet] 1 tab PO Q4HP PRN #10 tab.rapdis PRN Reason: Lactulose 20 gm PO BID #120 ml Referrals: RICCARDO MENDOZA MD [Primary Care Provider] - Follow up as needed
[2018-02-28 13:08] LABS: ABSOLUTE MONOCYTES (AUTO) 0.4 10^3/uL (0.1-1.4); ABSOLUTE NEUT (AUTO) 3.3 10^3/uL (1.7-8.2); BASOPHILS % (AUTO) 0.4 % (0-2); HEMATOCRIT 48.9 % (37.9-51.0); HEMOGLOBIN 16.1 g/dL (13.5-17.0); LYMPHOCYTES % (AUTO) 20.9 % (13-45); MEAN CORPUSCULAR HEMOGLOBIN 26.5 pg (27.0-33.4); MEAN CORPUSCULAR VOLUME 80 fl (80-97); MONOCYTES % (AUTO) 7.8 % (3-13); PLATELET COUNT 143 10^3/uL (150-450); RED BLOOD COUNT 6.09 10^6/uL (4.35-5.55); RED CELL DISTRIBUTION WIDTH 14.1 % (11.5-14.0); SEGMENTED NEUTROPHILS % (AUTO) 70.9 % (42-78); TOTAL CELLS COUNTED % (AUTO) 100 %; WHITE BLOOD COUNT 4.6 10^3/uL (4.0-10.5)
[2018-02-28 13:30] LABS: ALANINE AMINOTRANSFERASE 29 U/L (21-72); ALBUMIN 4.8 g/dL (3.5-5.0); ALKALINE PHOSPHATASE 79 U/L (38-126); ANION GAP 15 (5-19); ASPARTATE AMINO TRANSFERASE 25 U/L (17-59); BILIRUBIN,DIRECT 0.2 mg/dL (0.0-0.4); BILIRUBIN,TOTAL 1.6 mg/dL (0.2-1.3); BLOOD UREA NITROGEN 14 mg/dL (7-20); CALCIUM 10.2 mg/dL (8.4-10.2); CARBON DIOXIDE 22 mmol/L (22-30); CHLORIDE 106 mmol/L (98-107); GLUCOSE 107 mg/dL (75-110); LIPASE 59.8 U/L (23-300); POTASSIUM 3.8 mmol/L (3.6-5.0); SODIUM 143.4 mmol/L (137-145)
--- NOTE | 2018-02-28 13:47 | RADIOLOGY REPORT (SQ) ---
EXAM DESCRIPTION: ACUTE ABDOMEN SERIES COMPLETED DATE/TIME: 02/28/2018 1:03 pm REASON FOR STUDY: Abdominal pain COMPARISON: Abdominal films 11/07/2016, 05/20/2017 NUMBER OF VIEWS: Three views. TECHNIQUE: Frontal chest, supine abdomen and upright abdomen radiographic images acquired. LIMITATIONS: None. FINDINGS: CHEST: Lungs clear of infiltrates. FREE AIR: None. No abnormal gas collections. BOWEL GAS PATTERN: Nonobstructive pattern. No dilated loops or air fluid levels. CALCIFICATIONS: No suspicious calcifications. HARDWARE: None in the abdomen. SOFT TISSUES: No gross mass or suggestion of organomegaly. BONES: No acute fracture. No worrisome bone lesions. OTHER: No other significant finding. IMPRESSION: NO RADIOGRAPHIC EVIDENCE FOR ACUTE ABDOMINAL DISEASE. TECHNICAL DOCUMENTATION: JOB ID: [id number] [employer]- All Rights Reserved Reading location - IP/workstation name: [email or web address]
== END 2018-02-28 14:29 | disposition home or self-care (01) ==
LOC: ER 11:46
DX: K59.01 Slow transit constipation (principal); R10.9 Unspecified abdominal pain; R11.2 Nausea with vomiting, unspecified
CPT/HCPCS: 99284; 36415; 83690; 85025; 80053; 74022; A9270; S0119

== ENCOUNTER 2018-07-26 10:48 | Emergency (ER) | payer MEDICARE, MEDICAID ==
[2018-07-26] MEDS ORDERED: IPRATROPIUM/ALBUTEROL 0.5-2.5 MG/3 ML AMPUL NEB ONE (12:26)
[2018-07-26] MEDS ORDERED: PREDNISONE 20 MG TABLET PO ONE (12:26)
--- NOTE | 2018-07-26 12:27 | ER Document Report ---
HPI - HPI Patient complains to provider of: Cold symptoms Time Seen by Provider: 07/26/18 12:15 Onset: Last week Onset/Duration: Persistent Quality of pain: Achy Pain Level: 2 Context: Patient presents with family member who states patient's had cough congestion sore throat for the past week. No fever. There are other sick contacts in the household. Associated Symptoms: Nonproductive cough, Rhinnorhea, Sore throat. denies: Fever Exacerbated by: Denies Relieved by: Denies Similar symptoms previously: Yes Recently seen / treated by doctor: No - ROS ROS below otherwise negative: Yes Systems Reviewed and Negative: Yes All other systems reviewed and negative - CONSTITUTIONAL Constitutional: DENIES: Fever - EENT EENT: REPORTS: Sore Throat, Congestion - NEURO Neurology: DENIES: Headache - CARDIOVASCULAR Cardiovascular: DENIES: Chest pain - RESPIRATORY Respiratory: REPORTS: Coughing - GASTROINTESTINAL Gastrointestinal: DENIES: Nausea, Patient vomiting - DERM Skin Color: Normal Skin Problems: None Past Medical History - General Information source: Parent Cannot obtain history due to: Mentally challenged - Social History Smoking Status: Never Smoker Frequency of alcohol use: None Drug Abuse: None Lives with: Family Family History: Reviewed & Not Pertinent Pulmonary Medical History: Denies: Hx Asthma Neurological Medical History: Reports: Hx Seizures - last sz was at 9 years old- no current meds. Denies: Hx Cerebrovascular Accident Renal/ Medical History: Denies: Hx Peritoneal Dialysis GI Medical History: Reports: Hx Gastroesophageal Reflux Disease Musculoskeletal Medical History: Denies Hx Arthritis Past Surgical History: Reports: Hx Oral Surgery - Immunizations Hx Diphtheria, Pertussis, Tetanus Vaccination: Yes Vertical Provider Document - CONSTITUTIONAL Agree With Documented VS: Yes Exam Limitations: No Limitations General Appearance: WD/WN, No Apparent Distress - INFECTION CONTROL TRAVEL OUTSIDE OF THE [place] IN LAST 30 DAYS: No - HEENT HEENT: Atraumatic, Normocephalic, Pharyngeal Tenderness, Pharyngeal Erythema. negative: Pharyngeal Exudate, Tympanic Membrane Red, Tympanic Membrane Bulging - NECK Neck: Normal Inspection, Supple. negative: Lymphadenopathy-Left, Lymphadenopathy-Right - RESPIRATORY Respiratory: No Respiratory Distress, Chest Non-Tender, Wheezing - CARDIOVASCULAR Cardiovascular: Regular Rate, Regular Rhythm, No Murmur. negative: Tachycardia - GI/ABDOMEN Gastrointestinal: Abdomen Soft - BACK Back: Normal Inspection - MUSCULOSKELETAL/EXTREMETIES Musculoskeletal/Extremeties: MAEW - NEURO Level of Consciousness: Awake, Alert, Appropriate Motor/Sensory: No Motor Deficit - DERM Integumentary: Warm, Dry, No Rash Course - Re-evaluation Re-evalutation: 07/26/18 Respirations unlabored, patient with good air movement after nebulizer treatment. Decreased wheezing bilaterally. No concern for pneumonia. Patient stable for discharge at this time. - Vital Signs Vital signs: Temp Pulse Resp BP Pulse Ox 98.7 F 92 16 115/99 H 100 07/26/18 10:53 07/26/18 10:53 07/26/18 10:53 07/26/18 10:53 07/26/18 10:53 - Laboratory Laboratory results interpreted by me: 07/26/18 19:19 Labs- Entire Visit 07/26/18 12:34 Group A Strep Rapid NEGATIVE - Diagnostic Test Radiology reviewed: Reports reviewed Discharge - Discharge Clinical Impression: Wheezing, Sore throat Upper respiratory infection Qualifiers: URI type: unspecified URI Qualified Code(s): J06.9 - Acute upper respiratory infection, unspecified Condition: Stable Disposition: HOME, SELF-CARE Additional Instructions: Return immediately for any new or worsening symptoms Followup with your primary care provider, call tomorrow to make a followup appointment Throat culture is pending, will call if you need any different treatment UPPER RESPIRATORY ILLNESS: You have a viral infection of the respiratory passages -- a "cold." This common infection causes nasal congestion, drainage, and often sore throat and cough. It is highly contagious. The disease usually lasts about 10 to 14 days. There is no "cure" for the viral infection -- it must run its course. If there is a complication, such as bacterial infection in the nose, sinuses, middle ear, or bronchial tubes, antibiotics may be required. The antibiotics won't affect the virus. Drink plenty of fluids. A humidifier may help. An expectorant medication or decongestant may make you more comfortable. Use acetaminophen or ibuprofen for fever or aches. See the doctor if fever persists over two days, if there is any significant worsening of your symptoms, or if you simply fail to improve as expected. BRONCHOSPASM: You have tightness in the bronchial tubes, called bronchospasm. This often occurs with bronchial infections. Allergies, inhaled chemicals, and polluted or cold air can also provoke bronchospasm. It's more likely in patients with asthma in the family. Emergency treatment of bronchospasm may include adrenaline shots or bronchodilator aerosol. You may feel lightheaded and have a rapid pulse for an hour or two. Rest and get plenty of fluids. At home, we'll treat you with a bronchodilator inhaler. Antibiotics and corticosteroids may be required for some patients. Until you recover, avoid chemical fumes, dusts, pollens, and exercising in very cold or dry air. If you smoke, stop now!! If you develop a fever, increased wheezing, chest pain, or severe shortness of breath, you should contact the doctor immediately. INHALED BRONCHODILATORS: You have received a treatment of and/or prescription for an inhaled bronchodilator -- a medication which stimulates the airways in the lung to dilate. This improves the flow of air in asthma, bronchitis, and emphysema. These medicines have some similarity to adrenaline, and can cause similar side effects: shakiness, racing heart, and a sense of nervousness. These side effects decrease with time. Contact your doctor if these side effects are severe. Do not over-use the medicine. Too-frequent use of the inhaler may make it ineffective. Call your doctor if the inhaler is not controlling your symptoms at the prescribed doses. STEROID MEDICATION: You have been given an injection of or oral medicine of the cortisone/steroid class. This medication is used to control inflammation or allergy. Oh t is usually only given for a short period of time, until the acute process subsides. There are usually no side effects from short-term use of cortisone-like med ications. Some persons feel an increased sense of well-being and are not sleepy at bedtime. Long-term use of cortisone medications is best avoided, unless required for a severe condition. If your condition does not remit, or relapses after the course of corticosteroid medication, you should consult your physician. USE OF ACETAMINOPHEN (Tylenol): Acetaminophen may be taken for pain relief or fever control. It's much safer than aspirin, offering a wider range of "safe" dosages. It is safe during . Some brand names are Tylenol, Panadol, Datril, Anacin 3, Tempra, and Liquiprin. Acetaminophen can be repeated every four hours. The following are maximum recommended dosages: >89 pounds or adults 650 mg to 900 mg Acetaminophen can be repeated every four hours. Maximum dose not to exceed 4000 mg a day. FOLLOW-UP CARE: If you have been referred to a physician for follow-up care, call the physicians office for an appointment as you were instructed or within the next two days. If you experience worsening or a significant change in your symptoms, notify the physician immediately or return to the Emergency Department at any time for re-evaluation. Prescriptions: Albuterol Sulfate [Proair Hfa Inhalation Aerosol 8.5 gm Mdi] 2 puff IH Q4 PRN #1 mdi PRN Reason: Inhaler,Assist Device,Accesory [Optichamber] 1 each MC Q4 PRN #1 each PRN Reason: Prednisone [Deltasone 10 mg Tablet] 10 mg PO ASDIR PRN #21 tablet PRN Reason: Referrals: RICCARDO MENDOZA MD [Primary Care Provider] - Follow up as needed
[2018-07-26 13:57] VITALS: BP 120/73
== END 2018-07-26 14:00 | disposition home or self-care (01) ==
LOC: ER 10:48
DX: R06.2 Wheezing (principal); J06.9 Acute upper respiratory infection, unspecified; J02.9 Acute pharyngitis, unspecified; R05 Cough; J34.89 Other specified disorders of nose and nasal sinuses
CPT/HCPCS: 94640; 99283; 87070; 87880; A9270 ×2; J7512; J7620

== ENCOUNTER 2018-07-27 19:21 | Emergency (ER) | payer MEDICARE, MEDICAID ==
[2018-07-27 19:39] VITALS: BP 127/70
--- NOTE | 2018-07-27 20:22 | ER Document Report ---
HPI - HPI Time Seen by Provider: 07/27/18 19:58 Pain Level: 4 Notes: Patient is a 42-year-old male who presents to the emergency department with chief complaint of upper gum swelling. Patient's mother is at bedside, she is his primary data management specialist, states that he has had increased pain to his upper gums and she thinks he is having a dental infection. States that the patient was seen at a dentist [place] and they will not be able to get in for at least 2-week. Denies any fevers or drainage from the area. - CONSTITUTIONAL Constitutional: DENIES: Fever, Chills - REPRODUCTIVE Reproductive: DENIES: : Past Medical History - General Information source: Relative - Social History Smoking Status: Never Smoker Family History: Reviewed & Not Pertinent Patient has suicidal ideation: No Patient has homicidal ideation: No - Past Medical History Cardiac Medical History: Denies: Hx Coronary Artery Disease, Hx Heart Attack, Hx Hypertension Pulmonary Medical History: Denies: Hx Asthma, Hx Bronchitis, Hx COPD, Hx Pneumonia Neurological Medical History: Reports: Hx Seizures - last sz was at 9 years old- no current meds. Denies: Hx Cerebrovascular Accident Renal/ Medical History: Denies: Hx Peritoneal Dialysis GI Medical History: Reports: Hx Gastroesophageal Reflux Disease Musculoskeletal Medical History: Denies Hx Arthritis Past Surgical History: Reports: Hx Oral Surgery - Immunizations Hx Diphtheria, Pertussis, Tetanus Vaccination: Yes Vertical Provider Document - CONSTITUTIONAL Notes: PHYSICAL EXAMINATION: GENERAL: Well-appearing, well-nourished and in no acute distress. HEAD: Atraumatic, normocephalic. EYES: Pupils equal round extraocular movements intact, conjunctiva are normal. ENT: Nares patent, edema with mild erythema noted to upper gumline near teeth #910 and 11. No drainable abscess identified. NECK: Normal range of motion LUNGS: No respiratory distress Musculoskeletal: Normal range of motion NEUROLOGICAL: Normal speech, normal gait. PSYCH: Normal mood, normal affect. SKIN: Warm, Dry, normal turgor, no rashes or lesions noted. - INFECTION CONTROL TRAVEL OUTSIDE OF THE [place] IN LAST 30 DAYS: No Course - Re-evaluation Re-evalutation: Patient will be placed on antibiotics for possible dental infection. Patient encouraged to follow-up with primary dentist next week for a follow-up. - Vital Signs Vital signs: Temp Pulse Resp BP Pulse Ox 97.7 F 63 16 127/70 H 100 07/27/18 19:38 07/27/18 19:38 07/27/18 19:38 07/27/18 19:38 07/27/18 19:38 Discharge - Discharge Clinical Impression: Dental infection Condition: Stable Disposition: HOME, SELF-CARE Additional Instructions: TOOTHACHE: Your pain is due to dental decay. The tooth must be repaired in order for you to feel better. You will, therefore, be referred to a dentist. We do not have dentists on the staff at [facility]. Severe swelling or drainage around a tooth usually means a dental abscess. This also requires evaluation and treatment by the dentist, but antibiotics may be prescribed while awaiting dental treatment. You should be rechecked immediately if you develop major swelling of the face, increasing pain, a lump in the jaw or gums, headache, difficulty swallowing, or fever. Please take antibiotics as prescribed. You may also continue taking the prednisone and albuterol inhaler as prescribed by Ms. Garcia yesterday. Please call your dentist to schedule an appointment for a recheck. Prescriptions: Amoxicillin 1 tab PO BID #20 tab Referrals: RICCARDO MENDOZA MD [Primary Care Provider] - Follow up as needed
[2018-07-27] MEDS ORDERED: AMOXICILLIN TRIHYDRATE 500 MG CAPSULE PO ONE (20:25)
== END 2018-07-27 20:55 | disposition home or self-care (01) ==
LOC: ER 19:21
DX: K04.7 Periapical abscess without sinus (principal); R22.0 Localized swelling, mass and lump, head
CPT/HCPCS: 99282; A9270

== ENCOUNTER 2018-08-22 09:12 | Day surgery (SDC) | payer MEDICARE, MEDICAID ==
[2018-08-22] MEDS ORDERED: LIDOCAINE 2%/EPINEPHRINE INJ 1.7 ML CARTRIDGE ONE (11:51)
[2018-08-22] MEDS ORDERED: BUPIVACAINE HCL 0.5%/EPI 1:200000 INJ 1.8 ML CARTRIDGE ONE (11:52)
[2018-08-22] MEDS ORDERED: FENTANYL CITRATE INJ/PF 100 MCG/2 ML AMPUL ONE (12:03)
[2018-08-22] MEDS ORDERED: MIDAZOLAM 2 MG/2 ML INJ ONE (12:03)
[2018-08-22] MEDS ORDERED: ONDANSETRON HCL INJ/PF 4 MG/2 ML SDV ONE (12:03)
[2018-08-22] MEDS ORDERED: PROPOFOL INJ 200 MG/20 ML VIAL IV ONE (12:03)
[2018-08-22] MEDS ORDERED: DEXMEDETOMIDINE INJ 80 MCG/20 ML VIAL IV ONE (12:03)
[2018-08-22] MEDS ORDERED: DIPHENHYDRAMINE HCL 50 MG/ML VIAL IV PRN ×2 (12:33→14:03)
[2018-08-22] MEDS ORDERED: MEPERIDINE HCL/PF INJ 25 MG/1 ML DISP.SYRIN IV PRN ×2 (12:33→14:03)
[2018-08-22] MEDS ORDERED: PROMETHAZINE HCL INJ 25 MG/1 ML VIAL IV PRN ×2 (12:33→14:03)
[2018-08-22] MEDS ORDERED: FENTANYL CITRATE INJ/PF 100 MCG/2 ML AMPUL IV PRN ×5 (12:33→14:03)
--- NOTE | 2018-08-22 12:48 | Operative Report ---
Operative Report DATE OF SURGERY: 08/22/18 PREOPERATIVE DIAGNOSIS: Dental caries POSTOPERATIVE DIAGNOSIS: same OPERATION: Surgical removal of teeth numbers 6, 7, 8, 9, 10 and 11 SURGEON: DASH POWELL ANESTHESIA: GA TISSUE REMOVED OR ALTERED: Teeth which were discarded COMPLICATIONS: None ESTIMATED BLOOD LOSS: 10 mL INTRAOPERATIVE FINDINGS: Grossly decayed and nonrestorable teeth PROCEDURE: The patient was brought into operating room #for and placed on the operating room table in supine position. General anesthesia was induced via a peripheral IV and continued utilizing endotracheal intubation. The patient was then prepped and draped in the usual fashion for an intraoral procedure. A total of 2 carpules of 2% Lidocaine with 1:100K Epi were delivered to the planned surgical sites via both infiltration. The oral cavity and oropharynx were suctioned and a moistened oropharyngeal throat pack was placed. A bite block was used throughout the procedure. Full thickness mucoperisteal flaps were elevated. Ostectomy was completed as needed. Teeth were delivered with elevators and forceps. All sites debrided and irrigated. No sinus exposure noted. Surgifoam placed into each of the sockets. Wounds reapproximated and sutured with 4-0 chromic gut. The oral cavity was suctioned and found to be free of debris. The throat pack was removed. The oropharynx was suctioned. Gauze packs were placed bilaterally to aid in continued hemastasis. The patient was awakened from general anesthesia, extubated in the operating room and taken to recovery in spontaneous breathing fashion.
[2018-08-22] MEDS ORDERED: OXYCODONE-ACETAMINOPHEN 5-325 MG TABLET PO PRN (13:09)
[2018-08-22 13:51] VITALS: BP 113/82
[2018-08-22] MEDS ORDERED: MORPHINE SULFATE 10 MG/ML INJ IV PRN (14:03)
== END 2018-08-22 13:55 | disposition home or self-care (01) ==
LOC: OROUT 09:12
PROVIDERS: ATTEND Dentist Oral and Maxillofacial Surgery
DX: K02.9 Dental caries, unspecified (principal); E78.5 Hyperlipidemia, unspecified; K21.9 Gastro-esophageal reflux disease without esophagitis; F84.0 Autistic disorder; Z79.899 Other long term (current) drug therapy
CPT/HCPCS: 41899; J2250; J3490 ×2; J3010; J2405; J2704; 170